=== PATIENT | male | born 1995 | race Caucasian/White ===

== ENCOUNTER 2017-01-30 16:28 | Emergency (ER) | payer SELFPAY ==
[~2017-01-30] VITALS: Wt 90.9 kg
[2017-01-30] MEDS ORDERED: KETOROLAC 30 MG INJ IM STA (18:18)
[2017-01-30] MEDS ORDERED: HYDROCODONE/APAP (5/325) TAB PO ONE (18:30)
[2017-01-30 18:34] LABS: URINE BLOOD (Dip) POC Negative (NEGATIVE)
--- NOTE | 2017-01-30 18:46 | RADRPT ---
PROCEDURE: Abdominal ultrasound CLINICAL INDICATION: Abdominal pain and distension TECHNIQUE: Axial and longitudinal rodriguez scale images of the four abdominal quadrants COMPARISON: None FINDINGS: Four quadrant abdominal ultrasound demonstrates no evidence of free fluid. IMPRESSION: No free fluid identified in the abdomen RPTAT: HH .Fernando Guadalupe MD, MD Date Time Electronically viewed and signed by .Fernando Guadalupe MD, MD on 01/30/2017 18:46 .W/
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
[2017-01-30] MEDS ORDERED: HYDR-906 PO (19:45)
[2017-01-30] MEDS ORDERED: IBUP400T22 PO (19:45)
[2017-01-30 20:19] VITALS: BP 118/77; PULSE 82; RESP 16; TEMP 98.9
== END 2017-01-30 20:24 | disposition home or self-care (01) ==
LOC: FTE 16:28
DX: S19.9XXA Unspecified injury of neck, initial encounter (principal); S29.9XXA Unspecified injury of thorax, initial encounter; R51 Headache; V49.50XA Passenger injured in collision with unspecified motor vehicles in traffic accident, initial encounter
CPT/HCPCS: 70450; 71010; 72040; 76705; 81003; 96372; 99285; J1885